=== PATIENT | female | born 1970 | race Caucasian/White ===

== ENCOUNTER → 2020-02-24 | Outpatient (CLI) | payer MEDICAID ==
--- NOTE | 2020-02-24 15:33 | Diagnostic Imaging Report ---
INDICATION: Chronic shoulder pain, bilaterally. TIME OF EXAM: 2:49 PM. EXAMINATION: Multiple views of bilateral shoulders were obtained. FINDINGS: Both shoulders demonstrate normal glenohumeral and acromioclavicular alignment. Acromiohumeral space is normal bilaterally. No fracture is seen. There is no dislocation. IMPRESSION: No acute abnormality is detected. Dictated by: Dictated on workstation # [id number]
--- NOTE | 2020-02-24 15:50 | Diagnostic Imaging Report ---
INDICATION: Chronic right knee pain. TIME OF EXAM: 02:52 p.m. FINDINGS: Three views of the right knee demonstrate postoperative changes of total knee arthroplasty. Prosthetic elements appear to be in good position. No fracture or loosening is seen. Bony structures are intact. IMPRESSION: No acute abnormality is detected. Dictated by: Dictated on workstation # [id number]
== END ==
LOC: RAD FS 14:29
PROVIDERS: ATTEND Nurse Practitioner Family
DX: M25.561 Pain in right knee (principal); M25.511 Pain in right shoulder; M25.512 Pain in left shoulder; G89.29 Other chronic pain; Z96.651 Presence of right artificial knee joint
CPT/HCPCS: 73562

== ENCOUNTER → 2020-04-19 | Outpatient (CLI) | payer MEDICAID ==
--- NOTE | 2020-04-19 16:12 | Diagnostic Imaging Report ---
EXAMINATION: Magnetic resonance imaging of the right shoulder without contrast. DATE: April 19, 2020. COMPARISON: Shoulder radiographs February 24, 2020. HISTORY: 50-year-old female, right shoulder pain. History of prior rotator cuff tendon tear. TECHNIQUE: Magnetic Resonance Imaging sequences were performed of the shoulder without contrast. FINDINGS: ROTATOR CUFF, LIGAMENTS, TENDONS, AND MUSCLES: There is a full thickness, full width tear of the supraspinatus tendon with tendon retraction of approximately 2 cm. The tendon is retracted just medial to the humeral head and lateral to the glenoid. The infraspinatus, teres minor, and subscapularis tendons are intact. There is mild fatty atrophy of the supraspinatus muscle. LONG HEAD OF BICEPS: The biceps labral attachment and long head of the biceps tendon are intact. The long head of the biceps tendon is normally positioned within the bicipital groove. GLENOHUMERAL JOINT: The humeral head is well positioned relative to the glenoid. The degree of motion artifact on the axial sequence in particular substantially limits labral evaluation. There is no obvious labral tear. There is no identified paralabral cyst. The articular cartilage is grossly intact. There is no joint effusion. ACROMIOCLAVICULAR JOINT: The acromioclavicular joint is normally aligned. The coracoclavicular and coracoacromial ligaments are intact. There are mild acromioclavicular degenerative changes without undersurface osteophyte. BONE: There is no os acromiale. There is no Hill-Sachs deformity. There is degenerative related marrow edema adjacent to the acromioclavicular joint. There is no acute fracture, bone contusion, or evidence of osteonecrosis. BURSAE AND SOFT TISSUES: The bursae and soft tissue surrounding the shoulder are unremarkable. IMPRESSION: 1. Full thickness, full width tear of the supraspinatus tendon with tendon retraction of 2 cm just medial to the superior aspect of the humeral head and lateral to the glenoid. Mild fatty atrophy of the supraspinatus muscle. 2. Mild acromioclavicular degenerative changes without undersurface osteophyte. 3. Grossly intact labrum and unremarkable additional glenohumeral joint evaluation. There are motion limitations on the axial sequence. 4. No acute fracture, bone contusion, or evidence of osteonecrosis. Dictated by: Dictated on workstation # [id number]
== END ==
LOC: RAD 13:47
PROVIDERS: ATTEND Nurse Practitioner
DX: M75.121 Complete rotator cuff tear or rupture of right shoulder, not specified as traumatic (principal); M19.011 Primary osteoarthritis, right shoulder; M62.511 Muscle wasting and atrophy, not elsewhere classified, right shoulder
CPT/HCPCS: 73221

== ENCOUNTER 2021-03-07 18:48 | Emergency (ER) | payer MEDICAID ==
[~2021-03-07] VITALS: Ht 157 cm; Wt 95.0 kg
[2021-03-07] MEDS ORDERED: AMITRIPTYLINE 25 MG (ELAVIL) TAB PO STA (19:42)
[2021-03-07] MEDS ORDERED: fentaNYL INJ 100 MCG/2 ML AMP IVP ONE ×2 (19:45→20:45)
[2021-03-07 19:49] LABS: BASOPHILS # (AUTO) 0.2 10^3/uL (0.0-0.1); BASOPHILS % (AUTO) 1 % (0-10); EOSINOPHILS # (AUTO) 0.4 10^3/uL (0.0-0.3); EOSINOPHILS % (AUTO) 2 % (0-10); HEMATOCRIT 49 % (35-52); HEMOGLOBIN 16.6 g/dL (11.5-16.0); LYMPHOCYTES # (AUTO) 5.6 10^3/uL (1.0-4.0); LYMPHOCYTES % (AUTO) 31 % (12-44); MEAN CORPUSCULAR HEMOGLOBIN 29 pg (25-34); MEAN CORPUSCULAR HGB CONC 34 g/dL (32-36); MEAN CORPUSCULAR VOLUME 85 fL (80-99); MEAN PLATELET VOLUME 9.7 fL (9.0-12.2); MONOCYTES # (AUTO) 1.7 10^3/uL (0.0-1.0); MONOCYTES % (AUTO) 10 % (0-12); NEUTROPHILS % (AUTO) 56 % (42-75); PLATELET COUNT 395 10^3/uL (130-400); WHITE BLOOD COUNT 17.9 10^3/uL (4.3-11.0)
[2021-03-07 20:07] LABS: CREATININE SERUM 1.35 MG/DL (0.60-1.30); POTASSIUM 4.1 MMOL/L (3.6-5.0)
[2021-03-07 20:18] LABS: BASOPHILS % (MANUAL) 1 %; EOSINOPHILS % (MANUAL) 1 %; LYMPHOCYTES % (MANUAL) 30 %; MONOCYTES % (MANUAL) 4 %; NEUTROPHILS % (MANUAL) 64 %
[2021-03-07 20:19] LABS: RBC MORPH NORMAL
[2021-03-07 20:20] LABS: ERYTHROCYTE SEDIMENTATION RATE 9 MM/HR (0-30)
[2021-03-07 20:30] LABS: ALBUMIN 4.5 GM/DL (3.2-4.5)
[2021-03-07 20:30] LABS: BILIRUBIN,URINE NEGATIVE (NEGATIVE); CLARITY,URINE SL CLOUDY; COLOR,URINE YELLOW; GLUCOSE, URINE (UA) 3+ (NEGATIVE); KETONES,URINE NEGATIVE (NEGATIVE); LEUKOCYTE ESTERASE ,URINE NEGATIVE (NEGATIVE); NITRITE,URINE NEGATIVE (NEGATIVE); PH,URINE 5.5 (5-9); PROTEIN,URINE NEGATIVE (NEGATIVE)
[2021-03-07] MEDS ORDERED: NS IV 1000 ML 1,000 ML IV SCH (20:30)
[2021-03-07 20:33] LABS: TOTAL PROTEIN 8.1 GM/DL (6.4-8.2)
[2021-03-07 20:38] LABS: BILIRUBIN,DIRECT 0.4 MG/DL (0.0-0.3); BILIRUBIN,INDIRECT 0.6 MG/DL
[2021-03-07 20:49] LABS: AMORPHOUS SEDIMENT,UR FEW AMOR URATES /LPF; BACTERIA,URINE TRACE /HPF; WBC,URINE 0-2 /HPF
[2021-03-07 20:51] LABS: AMPHETAMINE SCREEN, URINE POSITIVE (NEGATIVE); BARBITURATE SCREEN URINE NEGATIVE (NEGATIVE); BENZODIAZEPINES SCREEN URINE NEGATIVE (NEGATIVE); CANNABINOID SCREEN, URINE NEGATIVE (NEGATIVE); COCAINE SCREEN URINE NEGATIVE (NEGATIVE); METHADONE STAT NEGATIVE (NEGATIVE); METHAMPHETAMINE SCREEN URINE S POSITIVE (NEGATIVE); OPIATE SCREEN URINE NEGATIVE (NEGATIVE); OXYCODONE STAT NEGATIVE (NEGATIVE); PROPOXYPHENE STAT NEGATIVE (NEGATIVE); TRICYCLIC ANTIDEPRESSANTS SCRE NEGATIVE (NEGATIVE)
[2021-03-07] MEDS ORDERED: LORazepam 0.5 MG (ATIVAN) TABLET PO ONE (21:30)
[2021-03-07] MEDS ORDERED: oxyCODONE/APAP 5/325MG (PERCOCET 5) TABLET PO ONE (21:30)
[2021-03-07] MEDS ORDERED: AMIT25TA9 PO (21:38)
--- NOTE | 2021-03-07 21:38 | ED General ---
General Chief Complaint: Lower Extremity Stated Complaint: FOOT PAIN Nursing Triage Note: PATIENT ARRIVES FOR BILATERAL FOOT PAIN THAT STARTED EARLIER TODAY. PATIENT REPORTS SHE IS TYPE TWO DIABETIC. PATIENT BROUGHT TO ROOM 05 VIA WC. PATIENT IS VERY ANXIOUS DUE TO PAIN. Source of Information: Patient Exam Limitations: No Limitations History of Present Illness Date Seen by Provider: Mar 07, 2021 Time Seen by Provider: 19:28 Initial Comments This 50-year-old woman presents to the emergency room with complaints of severe bilateral foot pain. She is diabetic and has had neuropathy in the past but she states this pain is far more severe than anything she has experienced in the past. She comments that gabapentin has not helped her for neuropathy in the past. She denies any known trauma or injury such as burn to her feet. She does have a few scattered ruptured blisters on her feet, and she is unaware of how these occurred. In the course of conversation patient admits that methamphetamine has been used in her home as recently as yesterday. She does not admit to directly using methamphetamine. Allergies and Home Medications Allergies Coded Allergies: naproxen (Verified Allergy, Intermediate, HIVES, 03/07/21) Sulfa (Sulfonamide Antibiotics) (Verified Allergy, Mild, Rash, 03/07/21) " Face breaks out" Patient Home Medication List Home Medication List Reviewed: Yes Amitriptyline HCl (Amitriptyline HCl) 25 Mg Tablet, 25 MG PO HS Prescribed by: RAMÓN SOLIMAN on 03/07/212137 Review of Systems Review of Systems Constitutional: no symptoms reported EENTM: no symptoms reported Respiratory: no symptoms reported Cardiovascular: no symptoms reported Gastrointestinal: no symptoms reported Genitourinary: no symptoms reported : No Musculoskeletal: see HPI Skin: see HPI Psychiatric/Neurological: See HPI Hematologic/Lymphatic: No Symptoms Reported Immunological/Allergic: no symptoms reported Past Eihgpgk-Icvaxy-Qjgofk Hx Patient Social History Tobacco Use?: Yes Tobacco type used: Cigarettes Smoking Status: Current Someday Smoker Substance use?: Yes Substance type: Methamphetamine Alcohol Use?: Yes Alcohol type: Hard Liquor Alcohol Frequency: Once in a while Immunizations Up To Date COVID19 Vaccine Fence Installer: MODERNA Seasonal Allergies Seasonal Allergies: No Past Medical History Surgery/Hospitalization HX: TWO ANKLE SURGERY DOES NOT RECALL WHEN. RT KNEE REPLACEMENT 2009. HYSTERECTOMY 2003. 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 oz. kg; 38.00 BMI Method: General Appearance: WD/WN, Anxious HEENT: PERRL/EOMI, Normal ENT Inspection Neck: Normal Inspection Respiratory: Lungs Clear, Normal Breath Sounds, No Accessory Muscle Use Cardiovascular: Regular Rate, Rhythm, No Edema, No Murmur Gastrointestinal: Non Tender, Soft Extremity: Other (Feet are erythematous and slightly swollen bilaterally. Equal bilaterally. Few scattered ruptured blisters. Strong pedal pulses and brisk capillary refill. 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 Norm as Tested Skin: Normal Color, Warm/Dry, Other (See above) Progress/Results/Core Measures Suspected Sepsis SIRS Temperature: Pulse: 111 Respiratory Rate: 24 Laboratory Tests 03/07/21 19:44: White Blood Count 17.9H Blood Pressure 79 /64 Mean: 93 Laboratory Tests 03/07/21 19:44: Creatinine 1.35H, Platelet Count 395, Total Bilirubin 1.0 Results/Orders Lab Results Laboratory Tests Test 03/07/21 19:44 03/07/21 20:26 Range/Units White Blood Count 17.9 H 4.3-11.0 10^3/uL Red Blood Count 5.69 H 3.80-5.11 10^6/uL Hemoglobin 16.6 H 11.5-16.0 g/dL Hematocrit 49 35-52 % Mean Corpuscular Volume 85 80-99 fL Mean Corpuscular Hemoglobin 29 25-34 pg Mean Corpuscular Hemoglobin Concent 34 32-36 g/dL Red Cell Distribution Width 12.3 10.0-14.5 % Platelet Count 395 130-400 10^3/uL Mean Platelet Volume 9.7 9.0-12.2 fL Immature Granulocyte % (Auto) 0 % Neutrophils (%) (Auto) 56 42-75 % Lymphocytes (%) (Auto) 31 12-44 % Monocytes (%) (Auto) 10 0-12 % Eosinophils (%) (Auto) 2 0-10 % Basophils (%) (Auto) 1 0-10 % Neutrophils # (Auto) 10.0 H 1.8-7.8 10^3/uL Lymphocytes # (Auto) 5.6 H 1.0-4.0 10^3/uL Monocytes # (Auto) 1.7 H 0.0-1.0 10^3/uL Eosinophils # (Auto) 0.4 H 0.0-0.3 10^3/uL Basophils # (Auto) 0.2 H 0.0-0.1 10^3/uL Immature Granulocyte # (Auto) 0.1 0.0-0.1 10^3/uL Neutrophils % (Manual) 64 % Lymphocytes % (Manual) 30 % Monocytes % (Manual) 4 % Eosinophils % (Manual) 1 % Basophils % (Manual) 1 % Blood Morphology Comment NORMAL Erythrocyte Sedimentation Rate 9 0-30 MM/HR Sodium Level 137 135-145 MMOL/L Potassium Level 4.1 3.6-5.0 MMOL/L Chloride Level 104 98-107 MMOL/L Carbon Dioxide Level 17 L 21-32 MMOL/L Anion Gap 16 H 5-14 MMOL/L Blood Urea Nitrogen 45 H 7-18 MG/DL Creatinine 1.35 H 0.60-1.30 MG/DL Estimat Glomerular Filtration Rate 41 BUN/Creatinine Ratio 33 Glucose Level 159 H 70-105 MG/DL Calcium Level 11.0 H 8.5-10.1 MG/DL Magnesium Level 2.0 1.6-2.4 MG/DL Total Bilirubin 1.0 0.1-1.0 MG/DL Direct Bilirubin 0.4 H 0.0-0.3 MG/DL Indirect Bilirubin 0.6 MG/DL Aspartate Amino Transf (AST/SGOT) 15 5-34 U/L Alanine Aminotransferase (ALT/SGPT) 14 0-55 U/L Alkaline Phosphatase 90 40-136 U/L Total Creatine Kinase 87 29-168 U/L C-Reactive Protein High Sensitivity 0.85 H 0.00-0.50 MG/DL Total Protein 8.1 6.4-8.2 GM/DL Albumin 4.5 3.2-4.5 GM/DL Procalcitonin 0.07 <0.10 NG/ML Urine Color YELLOW Urine Clarity SL CLOUDY Urine pH 5.5 5-9 Urine Specific [place] 1.025 H 1.016-1.022 Urine Protein NEGATIVE NEGATIVE Urine Glucose (UA) 3+ H NEGATIVE Urine Ketones NEGATIVE NEGATIVE Urine Nitrite NEGATIVE NEGATIVE Urine Bilirubin NEGATIVE NEGATIVE Urine Urobilinogen 0.2 < = 1.0 MG/DL Urine Leukocyte Esterase NEGATIVE NEGATIVE Urine RBC (Auto) NEGATIVE NEGATIVE Urine RBC NONE /HPF Urine WBC 0-2 /HPF Urine Squamous Epithelial Cells 5-10 /HPF Urine Crystals PRESENT H /LPF Urine Amorphous Sediment FEW CARRIE URATES H /LPF Urine Bacteria TRACE /HPF Urine Casts PRESENT /LPF Urine Hyaline Casts 2-5 H /LPF Urine Mucus NEGATIVE /LPF Urine Culture Indicated NO Urine Opiates Screen NEGATIVE NEGATIVE Urine Oxycodone Screen NEGATIVE NEGATIVE Urine Methadone Screen NEGATIVE NEGATIVE Urine Propoxyphene Screen NEGATIVE NEGATIVE Urine Barbiturates Screen NEGATIVE NEGATIVE Ur Tricyclic Antidepressants Screen NEGATIVE NEGATIVE Urine Phencyclidine Screen NEGATIVE NEGATIVE Urine Amphetamines Screen POSITIVE H NEGATIVE Urine Methamphetamines Screen POSITIVE H NEGATIVE Urine Benzodiazepines Screen NEGATIVE NEGATIVE Urine Cocaine Screen NEGATIVE NEGATIVE Urine Cannabinoids Screen NEGATIVE NEGATIVE My Orders Orders - RAMÓN HOOK MD Basic Metabolic Panel (03/07/21 19:33) Cbc With Automated Diff (03/07/21 19:33) Magnesium (03/07/21 19:33) Ed Iv/Invasive Line Start (03/07/21 19:33) Fentanyl Inj (Sublimaze Injection) (03/07/21 19:45) Amitriptyline Tablet (Elavil Tablet) (03/07/21 19:42) Erythrocyte Sedimentation Rate (03/07/21 19:42) Manual Differential (03/07/21 19:44) Hs C Reactive Protein (03/07/21 20:21) Liver Panel (03/07/21 20:21) Ed Iv/Invasive Line Start (03/07/21 20:21) Ns Iv 1000 Ml (Sodium Chloride 0.9%) (03/07/21 20:30) Drug Screen Stat (Urine) (03/07/21 20:21) Procalcitonin (Pct) (03/07/21 20:21) Ua Culture If Indicated (03/07/21 20:21) Fentanyl Inj (Sublimaze Injection) (03/07/21 20:45) Creatine Kinase (03/07/21 19:44) Oxycodone/Apap 5/325mg Tablet (Percocet (03/07/21 21:30) Lorazepam Tablet (Ativan Tablet) (03/07/21 21:30) Medications Given in ED Current Medications Medications Dose Ordered Sig/Juan Route Start Time Stop Time Status Last Admin Dose Admin Fentanyl Citrate 50 mcg ONCE ONCE IVP 03/07/21 19:45 03/07/21 19:46 DC 03/07/21 20:09 50 MCG Fentanyl Citrate 50 mcg ONCE ONCE IVP 03/07/21 20:45 03/07/21 20:46 DC 03/07/21 20:50 50 MCG Lorazepam 0.5 mg ONCE ONCE PO 03/07/21 21:30 03/07/21 21:31 DC 03/07/21 21:45 0.5 MG Oxycodone/ Acetaminophen 1 tab ONCE ONCE PO 03/07/21 21:30 03/07/21 21:31 DC 03/07/21 21:45 1 TAB Vital Signs/I&O 03/07/21 03/07/21 03/07/21 18:55 18:55 21:54 Temp 35.3 35.3 36.0 Pulse 111 111 102 Resp 24 22 24 B/P (MAP) 79/64 (69) 111/84 106/75 Pulse Ox 96 100 O2 Delivery Room Air Room Air Room Air Capillary Refill : Less Than 3 Seconds Blood Pressure Mean: 93 Progress Note : Progress Note Patient was given fentanyl for pain. Pain is likely an exacerbation of diabetic neuropathy triggered by methamphetamine use. Antibiotic ointment was applied to her ruptured blisters. Patient was given Ativan and Percocet prior to returning home. See discharge instructions. Departure Impression Primary Impression: Diabetic neuropathy Qualified Codes: E11.49 - Type 2 diabetes mellitus with other diabetic neurological complication Additional Impression: Methamphetamine use Disposition: HOME, SELF-CARE Condition: Improved Departure-Patient Inst. Decision time for Depature: 21:34 Referrals: [facility] (PCP/Family) Primary Care Physician Patient Instructions: Diabetic Neuropathy, Methamphetamine Add. Discharge Instructions: Start amitriptyline as prescribed for treatment of your neuropathy. Follow-up with your primary care provider soon as possible for further treatment and evaluation. Call in the morning for an appointment time. Do not use any methamphetamines or other illicit substances as this may greatly aggravate your neuropathy and other medical conditions. Please contact the [facility] to discuss substance abuse treatment programs if you are having difficulty abstaining from illicit substances. You may use antibiotic ointment on the blisters of your feet. Call with questions or concerns. Return to the emergency room if you are having worsening symptoms despite following these instructions. All discharge instructions reviewed with patient and/or family. Voiced understanding. Scripts Amitriptyline HCl (Amitriptyline HCl) 25 Mg Tablet 25 MG PO HS, #10 TAB Prov: RAMÓN HOOK MD 03/07/21 RAMÓN HOOK MD Mar 07, 2021 21:38
[2021-03-07 21:54] VITALS: BP 106/75
== END 2021-03-07 21:54 | disposition home or self-care (01) ==
LOC: EDUNIT# 18:48 → ER 18:51
DX: E11.40 Type 2 diabetes mellitus with diabetic neuropathy, unspecified (principal); F15.90 Other stimulant use, unspecified, uncomplicated; I10 Essential (primary) hypertension; F41.9 Anxiety disorder, unspecified; F17.210 Nicotine dependence, cigarettes, uncomplicated; Z79.899 Other long term (current) drug therapy
CPT/HCPCS: 36415; 80048; 80076; 80306; 81000; 82550; 83735; 84145; 85007; 85027; 85652; 86141

== ENCOUNTER 2021-05-31 17:15 | Emergency (ER) | payer MEDICAID ==
[~2021-05-31] VITALS: Ht 157 cm; Wt 90.0 kg
[~2021-05-31 17:15] MED LIST: AMIT25TA9 PO
--- NOTE | 2021-05-31 18:39 | ED General ---
General Chief Complaint: Ear Problems Stated Complaint: SORE THROAT/COUGH/L EAR PAIN Nursing Triage Note: BILAT EAR PAIN THAT GOES DOWN TO THROAT X2 DAYS. Source of Information: Patient Exam Limitations: No Limitations History of Present Illness Date Seen by Provider: May 31, 2021 Time Seen by Provider: 18:20 Initial Comments This 51-year-old woman presents to the emergency room with complaints of bilateral ear pain and sore throat for 2 days. She denies any fever or chills. She has had some mild cough which she attributes to asthma. She is diabetic and reports her blood sugars have been normal which is in the 120s and 130s for her. She has been vaccinated for COVID-19 but not influenza. Allergies and Home Medications Allergies Coded Allergies: naproxen (Verified Allergy, Intermediate, HIVES, 05/31/21) Can take ibuprofen without reaction Sulfa (Sulfonamide Antibiotics) (Verified Allergy, Mild, Rash, 03/07/21) " Face breaks out" Patient Home Medication List Home Medication List Reviewed: Yes Amitriptyline HCl (Amitriptyline HCl) 25 Mg Tablet, 25 MG PO HS Prescribed by: RAMÓN SOLIMAN on 03/07/212137 Review of Systems Review of Systems Constitutional: no symptoms reported EENTM: see HPI Respiratory: see HPI Cardiovascular: no symptoms reported Gastrointestinal: no symptoms reported Genitourinary: no symptoms reported : No Musculoskeletal: no symptoms reported Skin: no symptoms reported Psychiatric/Neurological: Headache (Frequent and chronic/recurrent) Hematologic/Lymphatic: No Symptoms Reported Immunological/Allergic: no symptoms reported Past Oysktwh-Kndyal-Amfdfc Hx Patient Social History Tobacco Use?: No Alcohol Use?: No Immunizations Up To Date Second COVID19 Vaccination Bulmaro: UNKNOWN DATE COVID19 Vaccine Transition Mgr: UNKNOWN Seasonal Allergies Seasonal Allergies: No Past Medical History Surgery/Hospitalization HX: TWO ANKLE SURGERY DOES NOT RECALL WHEN. RT KNEE REPLACEMENT 2009. HYSTERECTOMY 2003. 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 oz. kg; 36.00 BMI Method: General Appearance: WD/WN, Mild Distress (Appears to be in mild pain) HEENT: PERRL/EOMI, TMs Normal, Normal ENT Inspection, Pharynx Normal, Other (Ears are tender when touched and when otoscope used bilaterally. 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 Norm as Tested Skin: Normal Color, Warm/Dry Progress/Results/Core Measures Suspected Sepsis SIRS Temperature: Pulse: 97 Respiratory Rate: 16 Blood Pressure 127 /75 Mean: 92 Results/Orders Lab Results Laboratory Tests Test 05/31/21 18:23 05/31/21 18:40 Range/Units Influenza Type A Antigen NEGATIVE NEGATIVE Influenza Type B Antigen NEGATIVE NEGATIVE Group A Streptococcus Screen NEGATIVE NEGATIVE My Orders Orders - RAMÓN HOOK MD Ibuprofen Tablet (Motrin Tablet) (05/31/21 18:45) Acetaminophen Tablet (Tylenol Tablet) (05/31/21 18:45) Coronavirus Sars-Cov-2 So 2018 (05/31/21 18:32) Influenza A & B Antigens (05/31/21 18:32) Rapid Strep A Screen (05/31/21 18:39) Medications Given in ED Current Medications Medications Dose Ordered Sig/Juan Route Start Time Stop Time Status Last Admin Dose Admin Acetaminophen 1,000 mg ONCE ONCE PO 05/31/21 18:45 05/31/21 18:46 DC 05/31/21 18:44 1,000 MG Ibuprofen 600 mg ONCE ONCE PO 05/31/21 18:45 05/31/21 18:46 DC 05/31/21 18:44 600 MG Vital Signs/I&O 05/31/21 17:20 Temp 35.8 Pulse 97 Resp 16 B/P (MAP) 127/75 (92) Pulse Ox 95 O2 Delivery Room Air Capillary Refill : Less Than 3 Seconds Blood Pressure Mean: 92 Progress Note #1: Time: 18:36 Progress Note Exam was unremarkable except for tenderness of the ears when they were examined bilaterally. Patient is requesting something for pain. Tylenol and ibuprofen were ordered. I discussed testing her for influenza and COVID-19 which she would like to do. Progress Note #2: Time: 19:57 Progress Note Strep and influenza swabs were negative. Covid test is pending. See discharge instructions for further discussion. No specific cause for her otalgia or sore throat was evident. Departure Impression Primary Impression: Otalgia Qualified Codes: H92.03 - Otalgia, bilateral Additional Impressions: Sore throat Person under investigation for COVID-19 Disposition: 01 HOME, SELF-CARE Condition: Improved Departure-Patient Inst. Decision time for Depature: 19:54 Referrals: [facility] (PCP/Family) Primary Care Physician Patient Instructions: COVID-19 Overview Add. Discharge Instructions: You may continue taking Tylenol (acetaminophen) up to 1000 mg every 6 hours as needed and/or ibuprofen up to 600 mg every 6 hours as needed for short-term relief of pain. Your COVID-19 test has not resulted yet. This results should be available in 24 to 48 hours. Please remain in quarantine until you know the results of this test. If you are negative for COVID-19 but your symptoms persist, consider using a nasal steroid spray such as Flonase (fluticasone) 2 sprays in each nostril daily for the next couple of weeks. This can be purchased [id number] or on [employer]. This helps clear the sinuses and the eustachian tubes of the ears. If symptoms worsen or persist more than several days, follow-up with your primary care provider or return to the ER. Call with questions or concerns. All discharge instructions reviewed with patient and/or family. Voiced understanding. Copy Copies To 1: VIJI BENTON JOSHUA T MD May 31, 2021 18:39
[2021-05-31] MEDS ORDERED: IBUPROFEN TABLET 200 MG TAB PO ONE (18:45)
[2021-05-31] MEDS ORDERED: ACETAMINOPHEN 500 MG TAB (TYLENOL) PO ONE (18:45)
[2021-05-31 20:04] VITALS: BP 127/75
[2021-06-02] MEDS ORDERED: AMOX500C2 PO (12:12)
== END 2021-05-31 20:04 | disposition home or self-care (01) ==
LOC: EDUNIT# 17:15 → ER 17:20
DX: J02.9 Acute pharyngitis, unspecified (principal); H92.03 Otalgia, bilateral; E11.40 Type 2 diabetes mellitus with diabetic neuropathy, unspecified; I10 Essential (primary) hypertension; F41.9 Anxiety disorder, unspecified; J45.909 Unspecified asthma, uncomplicated; Z20.822 Contact with and (suspected) exposure to COVID-19; Z79.899 Other long term (current) drug therapy
CPT/HCPCS: 87430; 87635; 87804; 99283

== ENCOUNTER 2021-08-15 13:26 | Emergency (ER) | payer MEDICAID ==
[~2021-08-15 13:26] MED LIST changes: +AMOX500C2 PO
--- NOTE | 2021-08-15 14:13 | ED Upper Extremity ---
General Chief Complaint: Laceration Stated Complaint: L 1ST FINGER LAC Nursing Triage Note: PT AMB TO FT 1 WITH C/O LAC ON FIRST FINGER OF L HAND. PT STATES SHE WAS CUTTING UP A CREDIT CARD AND IT STABBED HER FINGER Source: patient Exam Limitations: no limitations History of Present Illness Date Seen by Provider: Aug 15, 2021 Time Seen by Provider: 13:58 Initial Comments This is a well appearing 51 yo female who presented to ER for superficial cut on her left index finger sustained while breaking her credit card. Bleeding controlled prior to arrival. Allergies and Home Medications Allergies Coded Allergies: naproxen (Verified Allergy, Intermediate, HIVES, 05/31/21) Can take ibuprofen without reaction Sulfa (Sulfonamide Antibiotics) (Verified Allergy, Mild, Rash, 03/07/21) " Face breaks out" Patient Home Medication List Home Medication List Reviewed: Yes Amitriptyline HCl (Amitriptyline HCl) 25 Mg Tablet, 25 MG PO HS Prescribed by: RAMÓN SOLIMAN on 03/07/218 Amoxicillin (Amoxicillin) 500 Mg Capsule, 500 MG PO BID Prescribed by: LEEANNA BANG on 06/02/21 1212 Review of Systems Constitutional: no symptoms reported Musculoskeletal: no symptoms reported Skin: see HPI Past Ujungws-[id number]-[id number] Hx Patient Social History Tobacco Use?: No Use of E-Cig and/or Vaping dev: Yes E-Cig or Vaping type used: Nicotine Substance use?: No Additional substance use comme: FORMER [employer] USER Alcohol Use?: Yes Alcohol type: Hard Liquor Alcohol Frequency: Once in a while Pt feels they are or have been: No Immunizations Up To Date First/Initial COVID19 Vaccinat: 2020 Second COVID19 Vaccination Bulmaro: 2020 Seasonal Allergies Seasonal Allergies: No Past Medical History Surgery/Hospitalization HX: TWO ANKLE SURGERY DOES NOT RECALL WHEN. RT KNEE REPLACEMENT 2009. HYSTERECTOMY 2003. 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 oz. kg; 36.00 BMI Method: General Appearance: WD/WN, no apparent distress Neck: full range of motion, normal inspection Cardiovascular: regular rate, rhythm, no murmur Respiratory: lungs clear, normal breath sounds Shoulder: normal inspection, no evidence of injury Elbow/Forearm: normal inspection, no evidence of injury Wrist: Yes normal inspection, Yes no evidence of injury Hand: Left (index finger has 3mm superfical laceration ) Neurologic/Tendon: normal sensation, normal motor functions, normal tendon functions Neurologic/Psychiatric: no motor/sensory deficits, alert, normal mood/affect, oriented x 3 Skin: normal color, warm/dry Progress/Results/Core Measures Results/Orders Vital Signs/I&O Blood Pressure Mean: 68 Progress Progress Note : Progress Note Superficial laceration to left index finger. Cleansed with saline and covered with dermabond per patient request. Discussed that she could cover with bandage for a few days however she would like glue applied. Discharge POC reviewed and she is agreeable with plan. Departure Impression Primary Impression: Laceration of left index finger Disposition: HOME, SELF-CARE Condition: Improved Departure-Patient Inst. Decision time for Depature: 14:11 Referrals: [facility] [place] (PCP/Family) Primary Care Physician Patient Instructions: Laceration Repair With Glue ED Add. Discharge Instructions: Plan: 1. Keep hand elevated above your heart as much as possible over next 24 hours to reduce swelling. 2. Monitor for any signs of infection: redness, drainage, swelling. Follow up with your doctor or return if symptoms develop. 3. Avoid soaking finger, avoid picking, pulling of glue. If glue falls off then you can cover with bandaid. All discharge instructions reviewed with patient and/or family. Voiced u nderstanding. HEATHER THOMPSON GRUBBER Aug 15, 2021 14:13
[2021-08-15 14:23] VITALS: BP 102/60
== END 2021-08-15 14:25 | disposition home or self-care (01) ==
LOC: EDUNIT# 13:26 → ER 13:27
DX: S61.211A Laceration without foreign body of left index finger without damage to nail, initial encounter (principal); E11.9 Type 2 diabetes mellitus without complications; W26.8XXA Contact with other sharp object(s), not elsewhere classified, initial encounter
CPT/HCPCS: 12011